=== PATIENT | male | born 1990 | race Caucasian/White ===

== ENCOUNTER 2022-01-01 12:16 | Emergency (ER) | payer OTHER ==
[~2022-01-01] VITALS: Ht 177.8 cm; Wt 95.3 kg
--- NOTE | 2022-01-01 12:27 | NUR ---
ARRIVAL PT ARRIVED AMBULATORY TO ED 8 WITH C/O A HEADACHE AND POSSIBLE HIGH BP. VITALS TAKEN AND DR NOTIFIED.
[2022-01-01 12:39] VITALS: BP 128/91
[2022-01-01 13:16] VITALS: BP 126/88
--- NOTE | 2022-01-01 13:31 | ER.PDOC ---
General Chief Complaint: Headache Stated Complaint: POSSIBLE HIGH BP TRAVEL OUT OF US: No Time seen by MD: 14:00 Source: patient History of Present Illness Initial Comments Out of blood pressure meds for 3 days, reports mild headache, blood pressure on arrival was 130/90, no other associated symptoms Timing/Duration: unsure Severity: mild Modifying Factors: improves with medication, improves with rest Associated Symptoms: headaches Allergies: Coded Allergies: Penicillins (Verified Allergy, Unknown, ., 01/01/22) Past Medical History Medical History: cardiac problems, hypertension Social History Alcohol Use: none Drug Use: none Reviewed Nursing Reviewed: Vital Signs, Abn. 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 NML as Tested Skin: Normal Color Lymphatic: No Adenopathy Results/Orders Results/Orders Vital Signs Date Time Temp Pulse Resp B/P (MAP) Pulse Ox O2 Delivery O2 Flow Rate FiO2 01/01/22 13:16 97.8 87 18 126/88 (101) 99 Room Air* 0 21 01/01/22 12:39 97.8 98 18 99 01/01/22 12:39 97.8 98 18 01/01/22 12:39 97.8 98 18 128/91 (103) 99 Room Air* 0 21 ER DEPART Departure Time of Disposition: 14:22 Disposition: 01 HOME / SELF CARE / HOMELESS Impression: Primary Impression: Headache Additional Impression: HTN (hypertension) Condition: Stable Patient Instructions: Eplerenone tablets, Carvedilol tablets, Hypertension, Zdri-no-Lbtr, Lisinopril tablets Referrals: AMARJIT TAMAYO DO (PCP) PRIMARY CARE PROVIDER Additional Instructions: IN ED: EXAM BY ED PHYSICIAN AND NURSE, VITAL SIGNS AT HOME: EPLERENONE 25MG BY MOUTH DAILY X 1 MONTH LISINOPRIL 20MG/HCTZ 25 MG 1 TABLET BY MOUTH DAILY X 1 MONTH CARVEDILOL 6.25MG BY MOUTH TWICE DAILY X 1 MONTH FOLLOW UP WITH PRIMARY PROVIDER IN 2-3 DAYS RETURN TO ED IF SYMPTOMS WORSEN Duration or Time Spent with Pa: 12M Problem Qualifiers DOLORES CARRILLO MD Jan 01, 2022 13:31
== END 2022-01-01 13:21 | disposition home or self-care (01) ==
LOC: ER 12:16
DX: R51.9 Headache, unspecified (principal); I10 Essential (primary) hypertension; Z88.0 Allergy status to penicillin
CPT/HCPCS: 99283